=== PATIENT | male | born 1985 | race Caucasian/White ===

== ENCOUNTER 2017-07-31 14:02 | Emergency (ER) | payer MEDICAID ==
[~2017-07-31] VITALS: Ht 182.9 cm; Wt 79.3 kg
[2017-07-31] MEDS ORDERED: morphine 4 MG/ML inj SYRINge IV ONE (14:20)
[2017-07-31] MEDS ORDERED: ondansetron/PF 4mg/2ml inj IV ONE (14:20)
[2017-07-31] MEDS ORDERED: normal saline 1000ML IV soln IVB ONE (14:20)
[2017-07-31 14:23] LABS: BASOPHILS # (AUTO) 0.1 X10'3 (0-0.2); BASOPHILS % (AUTO) 0.3 % (0-1); EOSINOPHILS % (AUTO) 0 % (0-6); HEMATOCRIT 44.3 % (42.0-52.0); HEMOGLOBIN 15.6 g/dl (14.0-17.9); LYMPHOCYTES # (AUTO) 2.2 X10'3 (1.1-4.8); LYMPHOCYTES % (AUTO) 13.9 % (21-51); MEAN CORPUSCULAR HEMOGLOBIN 32.5 PG (27.0-31.0); MEAN CORPUSCULAR HGB CONC 35.2 % (33.0-36.5); MEAN CORPUSCULAR VOLUME 92.3 FL (78-98); MEAN PLATELET VOLUME 7.1 FL (7.4-10.4); MONOCYTES # (AUTO) 0.9 X10'3 (0-0.9); MONOCYTES % (AUTO) 5.8 % (2-12); NEUTROPHILS # (AUTO) 12.6 X10'3 (1.8-7.7); PLATELET COUNT 230 X10'3 (140-440); RED CELL DISTRIBUTION WIDTH 12.6 % (11.5-14.5); WHITE BLOOD COUNT 15.8 X10'3 (4.5-11.0)
[2017-07-31 14:32] LABS: PROTHROMBIN TIME 10.7 SECONDS (9.0-12.0)
[2017-07-31 14:37] LABS: ALANINE AMINOTRANSFERASE 19 U/L (12-78); ALBUMIN 4.3 G/DL (3.4-5.0); ALBUMIN/GLOBULIN RATIO 1.3 (1.1-1.5); ALKALINE PHOSPHATASE 65 IU/L (46-116); ANION GAP 14 (8-16); ASPARTATE AMINO TRANSFERASE 18 U/L (10-37); BILIRUBIN,TOTAL 0.8 MG/DL (0.1-1.0); BLOOD UREA NITROGEN 8 MG/DL (7-18); BUN/CREATININE RATIO 8.8 (5.4-32.0); CALCIUM 9.3 MG/DL (8.5-10.1); CHLORIDE 104 MMOL/L (99-107); CREATININE 0.91 MG/DL (0.60-1.10); GLUCOSE 133 MG/DL (70-104); POTASSIUM 3.5 MMOL/L (3.5-5.1); SODIUM 140 MMOL/L (135-145); TOTAL CARBON DIOXIDE 22.3 MMOL/L (24-32); TOTAL PROTEIN 7.6 G/DL (6.4-8.2); eGFR > 90 ML/MIN
[2017-07-31] MEDS ORDERED: LIDOcaine Viscous 15ml cup PO ONE (15:25)
[2017-07-31] MEDS ORDERED: mag hydrox/Alum hydrox/simeth 30ml oral suspension PO ONE (15:25)
[2017-07-31] MEDS ORDERED: metoclopramide 5 mg/ml inj IV ONE (15:25)
[2017-07-31 16:13] LABS: CLARITY,URINE CLOUDY (Clear); COLOR,URINE YELLOW (Yellow); GLUCOSE, URINE NEGATIVE (Neg); KETONES,URINE >=80 mg/dl (Neg); LEUKOCYTE ESTERASE ,URINE NEGATIVE (Neg); NITRITES, URINE NEGATIVE (Neg); OCCULT BLOOD,URINE MODERATE (Neg); PROTEIN,URINE 30 mg/dl (Neg)
[2017-07-31 16:17] LABS: UA COLLECTION TYPE CLN CATCH MIDSTREAM
[2017-07-31 16:25] LABS: BACTERIA,URINE 1+ /HPF (Neg); MUCUS STRANDS MODERATE /LPF (Neg); SQUAMOUS EPITHELIAL CELL,UR MODERATE /LPF (FEW)
[2017-07-31] MEDS ORDERED: ONDA4TAB9 SL (16:47)
[2017-07-31 17:08] VITALS: BP 130/87
== END 2017-07-31 17:10 | disposition home or self-care (01) ==
LOC: ER 14:03
DX: R10.84 Generalized abdominal pain (principal); R11.2 Nausea with vomiting, unspecified; R19.7 Diarrhea, unspecified
CPT/HCPCS: 36415; 71046; 74176; 80053; 81001; 85025; 85610; 87088; 96361; 96374; 96375; 99285; J2270; J2405; J2765; J7030

== ENCOUNTER 2019-11-20 14:00 | Emergency (ER) | payer MEDICAID ==
[~2019-11-20] VITALS: Ht 185.4 cm; Wt 88.6 kg
[2019-11-20 14:50] VITALS: BP 119/88
[2019-11-20] MEDS ORDERED: proCHLORperazine 10 MG/2 ml inj IM ONE (14:55)
== END 2019-11-20 15:18 | disposition home or self-care (01) ==
LOC: ER 14:00
DX: R10.30 Lower abdominal pain, unspecified (principal); R06.02 Shortness of breath; R11.2 Nausea with vomiting, unspecified; Z20.828 Contact with and (suspected) exposure to other viral communicable diseases; F12.90 Cannabis use, unspecified, uncomplicated; Z86.69 Personal history of other diseases of the nervous system and sense organs
CPT/HCPCS: 36415; 87635; 96372; 99283; J0780